=== PATIENT | female | born 1970 | race Caucasian/White ===

== ENCOUNTER 2016-11-08 10:24 | Emergency (ER) | payer SELFPAY ==
--- NOTE | 2016-11-08 11:16 | ERPHSYRPT ---
- History of Present Illness Time Seen by Provider: 11/08/16 10:52 Source: patient Exam Limitations: no limitations Patient Subjective Stated Complaint: PT REPORTS LEFT SIDED RIB PAIN BEGINNING YESTERDAY-DENIES INJURY-DENIE SOB-STATES IT WERNER ET ITCHES-STATES IT HURTS TO HAVE HER SHIRT ON IT-DENIES ANY PAIN ON RIGHT SIDE Triage Nursing Assessment: PT PINK WARM ET [id number] OBVIOUS SIGN OF INJURY- BREATH SOUNDS EQUAL BILATERALLY-RESP NONLABORED-REDNESS NOTED TO LEFT RIBS-PAIN DOES NOT CROSS MIDLINE Physician History: Patient with burning itching erythematous rash on the left lateral thoracic area extending from just inferior to the breast to the lateral left thoracic region symptoms since yesterday. Patient denies any shortness of breath fevers nausea vomiting chest pain otherwise. She states that she has not been otherwise ill. Past medical history includes heart murmer Past surgical history includes hysterectomy and breast implants Timing/Duration: yesterday Severity: moderate Modifying Factors: Improves With: nothing Associated Symptoms: rash (painful pruritic rash erythematous left lateral thoracic region extending from lateral back to just under her left breast), No nausea, No vomiting, No abdominal pain, No shortness of breath, No heartburn, No diaphoresis, No cough, No chills, No chest pain, No fever, No headaches, No loss of appetite, No malaise, No syncope Allergies/Adverse Reactions: amoxicillin Allergy (Intermediate, Verified 11/08/16 10:42) Hives tramadol [From Ultram] Allergy (Intermediate, Verified 11/08/16 10:42) Home Medications: No Home Meds 1 [facility] UD 11/08/16 [History] Hx Tetanus, Diphtheria Vaccination/Date Given: Yes Hx Influenza Vaccination/Date Given: Yes Hx Pneumococcal Vaccination/Date Given: Yes Immunizations Up to Date: Yes - Review of Systems Constitutional: No Fever, No Chills Eyes: No Symptoms Ears, Nose, & Throat: No Symptoms Respiratory: No Cough, No Dyspnea Cardiac: No Chest Pain, No Edema, No Syncope Abdominal/Gastrointestinal: No Abdominal Pain, No Nausea, No Vomiting, No Diarrhea Genitourinary Symptoms: No Dysuria Musculoskeletal: No Back Pain, No Neck Pain Skin: Pruritis, Rash (painful erythematous area left lateral thoracic region extending to inferior to left breast), Skin Lesions, No Cellulitis, No Decubiti , No Induration Neurological: No Dizziness, No Focal Weakness, No Sensory Changes Psychological: No Symptoms Endocrine: No Symptoms All Other Systems: Reviewed and Negative - Past Medical History Pertinent Past Medical History: No - Past Surgical History Past Surgical History: Yes Gastrointestinal: Hernia Repair Female Surgical History: Hysterectomy, Breast Implant - Social History Smoking Status: Never smoker Exposure to second hand smoke: No Drug Use: none Patient Lives Alone: No - Female History Hx Last Menstrual Period: HYSTERECTOMY - Nursing Vital Signs Nursing Vital Signs: Initial Vital Signs Temperature 98.7 F Temperature Source Oral Pulse Rate 92 Respiratory Rate 20 Blood Pressure [Right Arm] 138/90 Pain Intensity 6 - Physical Exam General Appearance: mild distress Eye Exam: PERRL/EOMI, eyes nml inspection Ears, Nose, Throat Exam: normal ENT inspection Neck Exam: normal inspection Respiratory Exam: normal breath sounds, lungs clear, No respiratory distress Cardiovascular Exam: regular rate/rhythm, normal heart sounds, normal peripheral pulses Gastrointestinal/Abdomen Exam: soft, normal bowel sounds, No tenderness, No mass Back Exam: normal inspection, normal range of motion, No CVA tenderness, No vertebral tenderness Extremity Exam: normal inspection, normal range of motion, pelvis stable Neurologic Exam: alert, oriented x 3, cooperative, normal mood/affect, nml cerebellar function, nml station & gait, sensation nml, No motor deficits Skin Exam: other (erythematous area left thoracic region extending from just inferior to the left breast to the left lateral thoracic region approximately 14 cm in width area erythematous not hot exquisitely tender with palpation) SpO2: 100 Oxygen Delivery: Room Air - Course Nursing assessment & vital signs reviewed: Yes - Progress Progress: improved Progress Note: 11/08/16 11:15 45-year-old white female with a erythematous area located on her left lateral thoracic region no obvious vesicles area is exquisitely tender with palpation. Distribution similar to shingles. Will treat for shingles - Departure Time of Disposition: 11:16 Departure Disposition: Home Clinical Impression: Herpes zoster Qualifiers: Herpes zoster complications: without complications Qualified Code(s): B02.9 - Zoster without complications Condition: Fair Critical Care Time: No Additional Instructions: Acyclovir 800 mg orally 5 times a day 7 days. [place] 5/325 #20 one to 2 orally every 4-6 hours as needed for pain. Follow-up with your family doctor return for acute distress or for severe symptoms. Prescriptions: Acyclovir 800 mg [Zovirax 800 mg] 800 mg PO 5XD #35 tablet Hydrocodone/Acetaminophen [[place] 5-325 Tablet] 1 - 2 tab PO Q4-6HPRN PRN #20 tablet PRN Reason: Pain
[2016-11-08 11:25] VITALS: BP 140/72; PULSE 70; O2SAT 97
== END 2016-11-08 11:24 | disposition home or self-care (01) ==
LOC: ED 10:24
DX: B02.9 Zoster without complications (principal)
CPT/HCPCS: 99281